=== PATIENT | male | born 1985 | race Caucasian/White ===

== ENCOUNTER → 2018-07-26 11:55 | Outpatient (BNVA) | payer MEDICARE, MEDICAID, SELFPAY | PROVIDERS: Referring Provider Nurse Practitioner; Visit Provider Psychiatry & Neurology Neurology | DX: M54.5 Low back pain (principal); R20.2 Paresthesia of skin; M48.061 Spinal stenosis, lumbar region without neurogenic claudication; F44.7 Conversion disorder with mixed symptom presentation | CPT/HCPCS: 99204 ==